=== PATIENT | female | born 1990 | race African-American/Black ===

== ENCOUNTER 2017-02-09 01:34 | Emergency (ER) | payer OTHER ==
[2017-02-09 01:46] VITALS: TEMP 98.1; BMI 24.0
[2017-02-09 03:09] LABS: PH,URINE 5.5 (5.0-8.0); URINE APPEARANCE CLEAR; URINE BILIRUBIN NEGATIVE (NEGATIVE); URINE BLOOD 3+ (NEGATIVE); URINE COLOR LT. BROWN; URINE GLUCOSE (UA) NEGATIVE (NEGATIVE); URINE KETONE NEGATIVE (NEGATIVE); URINE LEUK ESTERASE NEGATIVE (NEGATIVE); URINE NITRITE NEGATIVE (NEGATIVE); URINE PROTEIN TRACE (NEGATIVE); URINE UROBILINOGEN 0.2 mg/dL (0.2-1.0)
--- NOTE | 2017-02-09 03:17 | PDOC ---
History of Present Illness - General Chief Complaint: Urinary Problem Stated Complaint: 10 WEEKS - FREQ URINATION Time Seen by Provider: 02/09/17 03:17 Past History - Past Medical History Allergies/Adverse Reactions: Allergies Allergy/AdvReac Type Severity Reaction Status Date / Time No Known Allergies Allergy Verified 02/09/17 01:43 Home Medications: Ambulatory Orders NK [No Known Home Medication] 04/23/15 Other medical history: denies - Psycho/Social/Smoking Cessation Hx Anxiety: No Suicidal Ideation: No Smoking History: Never smoked Have you smoked in the past 12 months: No Hx Alcohol Use: No Drug/Substance Use Hx: No Substance Use Type: None *Physical Exam - Vital Signs Last Vital Signs Temp Pulse Resp BP Pulse Ox 98.1 F 79 18 123/61 99 02/09/17 01:41 02/09/17 01:41 02/09/17 01:41 02/09/17 01:41 02/09/17 01:41 ED Treatment Course - ADDITIONAL ORDERS Additional order review: Laboratory Results 02/09/17 03:02 Urine Color Lt. brown Urine Appearance Clear Urine pH 5.5 Urine Protein Trace H Urine Glucose (UA) Negative Urine Ketones Negative Urine Blood 3+ H Urine Nitrite Negative Urine Bilirubin Negative Urine Urobilinogen 0.2 Ur Leukocyte Esterase Negative Medical Decision Making - Medical Decision Making 02/09/17 07:08 Pt walked out before I could examine her and before her blood type returned. She is O+ however, and will not require rhogam. Pt refusing to go to sonogram this AM, as she has to go home and take care of her other kids. She has hematuria and vag bleed. *DC/Admit/Observation/Transfer Diagnosis at time of Disposition: Vaginal discharge - Referrals Referrals: STAFF,NOT ON [Primary Care Provider] -
[2017-02-09 03:18] LABS: URINE MUCUS RARE; URINE RBC 1260 /hpf (0-3); URINE WBC 114 /hpf (3-5)
[2017-02-09 06:22] VITALS: BP 118/69; PULSE 70
== END 2017-02-09 06:22 | disposition left against medical advice (07) ==
LOC: JER 01:34
DX: Z53.21 Procedure and treatment not carried out due to patient leaving prior to being seen by health care provider (principal)
CPT/HCPCS: 81003; 81015; 84703; 86850; 86900; 86901; 87086; 99282-25

== ENCOUNTER 2022-09-25 10:42 | Inpatient (IN) | payer OTHER ==
[2022-09-25 09:38] VITALS: BMI 30.7
[~2022-09-25 10:42] MED LIST: ACETAMINOPHEN 1000 MG/100 ML BAG IVPB ONE; ACETAMINOPHEN INJECTION 100 ML IVPB ONE; ELECTROLYTE-148 SOLN 1,000 ML IV SCH
[2022-09-25] MEDS ORDERED: ACETAMINOPHEN 1000 MG/100 ML BAG IVPB PRN (10:45)
[2022-09-25] MEDS ORDERED: CEFAZOLIN SODIUM 2 GM in DEXTROSE 5%-WATER 100 ML IVPB SCH (10:45)
[2022-09-25] MEDS: ELECTROLYTE-148 SOLN 1,000 ML IV SCH ×2 (11:00→23:46)
[2022-09-25] MEDS: CEFAZOLIN SODIUM 2 GM in DEXTROSE 5%-WATER 100 ML IVPB SCH ×2 (12:20→17:08)
[2022-09-25 12:23] LABS: EPI CELLS >36 /uL (0-25.1); HYALINE CASTS 0 /uL (0-3.1); PH,URINE 7.5 (5.0-8.0); URINE APPEARANCE CLEAR; URINE BACTERIA 2359 /uL (0-1359); URINE BILIRUBIN NEGATIVE (NEGATIVE); URINE COLOR YELLOW; URINE GLUCOSE (UA) NEGATIVE (NEGATIVE); URINE KETONE NEGATIVE (NEGATIVE); URINE LEUK ESTERASE 1+ (NEGATIVE); URINE NITRITE NEGATIVE (NEGATIVE); URINE PROTEIN NEGATIVE (NEGATIVE); URINE RBC 6 /uL (0-23.9); URINE UROBILINOGEN 0.2 mg/dL (0.2-1.0); URINE WBC 59 /uL (0-25.8)
[2022-09-25] MEDS ORDERED: DEXTROSE 5%-WATER 100 ML IVPB ONE (12:27)
[2022-09-25] MEDS ORDERED: CEFAZOLIN SODIUM 2 GM VIAL ONE (12:27)
[2022-09-25 14:07] VITALS: RESP 18
[2022-09-25 14:44] LABS: BASO % 0.6 % (0-2.0); EOS % 2.3 % (0-4.5); HEMATOCRIT 31.5 % (32.4-45.2); HEMOGLOBIN 11.1 GM/dL (10.7-15.3); LYMPH % 16.2 % (8-40); MCH 31.3 pg (25.7-33.7); MCHC 35.3 g/dl (32.0-36.0); MEAN CELL VOLUME 88.8 fl (80-96); MONO % 13.2 % (3.8-10.2); NEUT % 67.7 % (42.8-82.8); PLATELET COUNT 187 10^3/uL (134-434); RBC 3.54 M/mm3 (3.60-5.2); RDW 15.5 % (11.6-15.6); WHITE BLOOD COUNT 5.6 K/mm3 (4.0-10.0)
[2022-09-25 14:50] LABS: INR 1.04 (0.83-1.09); PROTHROMBIN TIME (PATIENT) 12.1 SEC (9.7-13.0)
[2022-09-25 14:53] LABS: ACTIVATED PTT 26.7 SECONDS (25.2-36.5)
[2022-09-25 15:39] LABS: CALCIUM 8.7 mg/dL (8.5-10.1)
[2022-09-25 15:40] LABS: BLOOD UREA NITROGEN 4.9 mg/dL (7-18)
[2022-09-25 15:43] LABS: CREATININE 0.5 mg/dL (0.55-1.3)
[2022-09-25 22:26] VITALS: PULSE 105
[2022-09-26] MEDS: CEFAZOLIN SODIUM 2 GM in DEXTROSE 5%-WATER 100 ML IVPB SCH ×2 (02:13→09:00)
[2022-09-26 10:00] VITALS: BP 99/64; TEMP 98
[2022-09-26] MEDS ORDERED: DIPHTH,PERTUSS(ACELL),TET 0.5 ML DISP.SYRIN IM ONE (10:00)
== END 2022-09-26 12:05 | disposition home or self-care (01) | DRG 832 ==
LOC: JASUSAT 10:42 → JLDR 10:42 → J3W 13:59 → JASUSAT 09-26 10:13
PROVIDERS: ADMIT Obstetrics & Gynecology; ATTEND Obstetrics & Gynecology
DX: O23.43 Unspecified infection of urinary tract in pregnancy, third trimester (principal); N39.0 Urinary tract infection, site not specified; Z3A.33 33 weeks gestation of pregnancy
CPT/HCPCS: 36415; 59025; 80048; 81003; 85025; 85610; 85730; 86850; 86900; 86901; 87086; 90715

== ENCOUNTER 2022-10-22 13:45 | Inpatient (IN) | payer OTHER ==
[2022-10-22] MEDS ORDERED: ACETAMINOPHEN 500 MG TABLET (FP) PO ONE (14:45)
[2022-10-22] MEDS ORDERED: ACETAMINOPHEN 500 MG TABLET (FP) ONE (14:46)
[2022-10-22 16:29] LABS: BASO % 0.5 % (0-2.0); HEMATOCRIT 32.6 % (32.4-45.2); HEMOGLOBIN 11.3 GM/dL (10.7-15.3); LYMPH % 18.1 % (8-40); MCH 30.6 pg (25.7-33.7); MCHC 34.6 g/dl (32.0-36.0); MEAN CELL VOLUME 88.5 fl (80-96); MONO % 15.5 % (3.8-10.2); NEUT % 61.9 % (42.8-82.8); PLATELET COUNT 181 10^3/uL (134-434); RBC 3.68 M/mm3 (3.60-5.2); RDW 15.4 % (11.6-15.6); WHITE BLOOD COUNT 5.8 K/mm3 (4.0-10.0)
[2022-10-22 16:35] LABS: INR 1.01 (0.83-1.09); PROTHROMBIN TIME (PATIENT) 11.7 SEC (9.7-13.0)
[2022-10-22 16:38] LABS: ACTIVATED PTT 25.6 SECONDS (25.2-36.5)
[2022-10-22 16:51] LABS: EPI CELLS >36 /uL (0-25.1); HYALINE CASTS 0 /uL (0-3.1); URINE APPEARANCE CLEAR; URINE BACTERIA 5005 /uL (0-1359); URINE BILIRUBIN NEGATIVE (NEGATIVE); URINE COLOR YELLOW; URINE GLUCOSE (UA) NEGATIVE (NEGATIVE); URINE KETONE NEGATIVE (NEGATIVE); URINE LEUK ESTERASE 3+ (NEGATIVE); URINE NITRITE NEGATIVE (NEGATIVE); URINE PROTEIN NEGATIVE (NEGATIVE); URINE RBC 10 /uL (0-23.9); URINE UROBILINOGEN 0.2 mg/dL (0.2-1.0); URINE WBC 47 /uL (0-25.8)
[2022-10-22 16:56] LABS: POTASSIUM 4.5 mmol/L (3.5-5.1)
[2022-10-22 16:58] LABS: CALCIUM 8.8 mg/dL (8.5-10.1)
[2022-10-22 16:59] LABS: BLOOD UREA NITROGEN 5.4 mg/dL (7-18)
[2022-10-22 17:02] LABS: CREATININE 0.4 mg/dL (0.55-1.3)
[2022-10-22] MEDS ORDERED: ceFAZolin SODIUM 1 GM VIAL ONE (17:08)
[2022-10-22] MEDS: ELECTROLYTE-148 SOLN 1,000 ML IV SCH (17:30)
[2022-10-22] MEDS ORDERED: CEFAZOLIN SODIUM 2 GM VIAL IVPB ONE (18:20)
[2022-10-22 19:10] VITALS: BMI 32.7
[2022-10-22 21:38] LABS: HIV INTERPRETATION NEGATIVE (NEGATIVE)
[2022-10-23] MEDS ORDERED: ceFAZolin SODIUM 1 GM VIAL ONE ×2 (01:58→09:59)
[2022-10-23] MEDS ORDERED: DEXTROSE 5%-WATER - 50 ML IVPB ONE (01:58)
[2022-10-23] MEDS: ELECTROLYTE-148 SOLN 1,000 ML IV SCH ×2 (02:00→20:39)
[2022-10-23] MEDS: CEFAZOLIN 1 GM in DEXTROSE 5%-WATER - 50 ML IVPB SCH ×3 (02:09→18:22)
[2022-10-23] MEDS ORDERED: ACETAMINOPHEN INJECTION 100 ML IVPB ONE ×2 (09:25→16:17)
[2022-10-23] MEDS ORDERED: ACETAMINOPHEN 1000 MG/100 ML BAG IVPB ONE (09:45)
[2022-10-23] MEDS ORDERED: LIGASURE IMPACT TP ONE (13:46)
[2022-10-23] MEDS ORDERED: morphine SULFATE (PF) 1 MG/2 ML SYRINGE ONE (14:30)
[2022-10-23] MEDS ORDERED: TRANEXAMIC ACID 1000 MG/10 ML VIAL ONE (15:11)
[2022-10-23] MEDS ORDERED: KETOROLAC TROMETHAMINE 30 MG/1 ML VIAL ONE (15:50)
[2022-10-23] MEDS ORDERED: CITRIC ACID/SODIUM CITRATE 30 ML UNIT-DOSE CUP PO ONE (16:01)
[2022-10-23 16:02] LABS: CORD HCO3 23.5 mmHg (20-29); CORD PCO2 46.6 mmHg (30-78); CORD pH 7.32 (7.14-7.44)
[2022-10-23] MEDS ORDERED: IBUPROFEN 800 MG/8 ML IJ IVPB PRN (16:02)
[2022-10-23] MEDS ORDERED: METHYLERGONOVINE MALEATE 0.2 MG/1 ML AMP IM PRN (16:02)
[2022-10-23] MEDS ORDERED: BENZOCAINE 20% 57 GM BOTTLE TP PRN (16:02)
[2022-10-23] MEDS ORDERED: BENZOCAINE 28 GM HEMORRHOIDAL OINTMENT TP PRN (16:02)
[2022-10-23] MEDS ORDERED: ACETAMINOPHEN 325 MG TABLET (FP) PO PRN (16:02)
[2022-10-23] MEDS ORDERED: WITCH HAZEL 50% (TUCKS) 40 PAD/JAR PAD TP PRN (16:02)
[2022-10-23] MEDS ORDERED: FENTANYL CITRATE/PF 50 MCG/ML VIAL ONE (16:03)
[2022-10-23] MEDS: OXYTOCIN 20 UNITS in 0.9% NS 20 UNIT/1,000 ML INFUS.BAG IV SCH (16:15)
[2022-10-23] MEDS ORDERED: OXYTOCIN 20 UNITS in 0.9% NS 20 UNIT/1,000 ML INFUS.BAG IV ONE (17:03)
[2022-10-23] MEDS ORDERED: NALOXONE HCL 0.4 MG/ML VIAL IVPUSH PRN (20:33)
[2022-10-23] MEDS ORDERED: ONDANSETRON 4 MG/2 ML VIAL IVPUSH PRN (20:33)
[2022-10-23] MEDS ORDERED: oxyCODONE HCL 5 MG TABLET PO PRN ×2 (20:33)
[2022-10-23] MEDS: ACETAMINOPHEN 325 MG TABLET (FP) PO SCH (20:46)
[2022-10-24] MEDS: OXYTOCIN 20 UNITS in 0.9% NS 20 UNIT/1,000 ML INFUS.BAG IV SCH ×2 (00:53→20:04)
[2022-10-24] MEDS: CEFAZOLIN 1 GM in DEXTROSE 5%-WATER - 50 ML IVPB SCH ×2 (01:42→10:00)
[2022-10-24] MEDS: SIMETHICONE 80 MG TAB.CHEW (FP) PO PRN ×3 (02:45→22:05)
[2022-10-24] MEDS: ACETAMINOPHEN 325 MG TABLET (FP) PO SCH ×4 (02:45→20:49)
[2022-10-24] MEDS ORDERED: oxyCODONE HCL 5 MG TABLET PO PRN ×2 (04:02)
[2022-10-24 07:17] LABS: BASO % 0.3 % (0-2.0); HEMATOCRIT 31.9 % (32.4-45.2); HEMOGLOBIN 11.2 GM/dL (10.7-15.3); LYMPH % 9.4 % (8-40); MCH 30.9 pg (25.7-33.7); MCHC 35.2 g/dl (32.0-36.0); MEAN CELL VOLUME 87.7 fl (80-96); MEAN PLT VOLUME 8.6 fl (7.5-11.1); MONO % 7.3 % (3.8-10.2); PLATELET COUNT 162 10^3/uL (134-434); RBC 3.64 M/mm3 (3.60-5.2); RDW 15.3 % (11.6-15.6); WHITE BLOOD COUNT 6.5 K/mm3 (4.0-10.0)
[2022-10-24] MEDS: PRENATAL VITAMINS W/ FOLIC ACID TABLET (FP) PO SCH (10:00)
[2022-10-24] MEDS: IBUPROFEN 600 MG TABLET (FP) PO PRN ×2 (10:58→23:43)
[2022-10-24] MEDS ORDERED: BISACODYL 10 MG SUPP.RECT RC PRN (16:02)
[2022-10-24] MEDS: oxyCODONE HCL 10 MG SUSTAINED ACTING TABLET PO SCH (22:05)
[2022-10-25] MEDS: SIMETHICONE 80 MG TAB.CHEW (FP) PO PRN ×3 (02:40→20:03)
[2022-10-25] MEDS: ACETAMINOPHEN 325 MG TABLET (FP) PO SCH ×4 (02:40→20:57)
[2022-10-25] MEDS: oxyCODONE HCL 10 MG SUSTAINED ACTING TABLET PO SCH ×2 (10:57→22:05)
[2022-10-25] MEDS: PRENATAL VITAMINS W/ FOLIC ACID TABLET (FP) PO SCH (10:57)
[2022-10-25] MEDS: IBUPROFEN 600 MG TABLET (FP) PO PRN ×2 (16:23→20:03)
[2022-10-26] MEDS: SIMETHICONE 80 MG TAB.CHEW (FP) PO PRN (02:36)
[2022-10-26] MEDS: ACETAMINOPHEN 325 MG TABLET (FP) PO SCH ×2 (02:36→09:22)
[2022-10-26] MEDS: IBUPROFEN 600 MG TABLET (FP) PO PRN (06:01)
[2022-10-26 06:39] LABS: BASO % 0.4 % (0-2.0); EOS % 4.9 % (0-4.5); HEMOGLOBIN 10.8 GM/dL (10.7-15.3); LYMPH % 14.6 % (8-40); MCH 30.7 pg (25.7-33.7); MCHC 34.8 g/dl (32.0-36.0); MEAN CELL VOLUME 88.3 fl (80-96); MEAN PLT VOLUME 7.6 fl (7.5-11.1); MONO % 12.2 % (3.8-10.2); NEUT % 67.9 % (42.8-82.8); PLATELET COUNT 216 10^3/uL (134-434); RBC 3.51 M/mm3 (3.60-5.2); RDW 15.5 % (11.6-15.6); WHITE BLOOD COUNT 8.6 K/mm3 (4.0-10.0)
[2022-10-26] MEDS: oxyCODONE HCL 10 MG SUSTAINED ACTING TABLET PO SCH (10:35)
[2022-10-26] MEDS: PRENATAL VITAMINS W/ FOLIC ACID TABLET (FP) PO SCH (10:37)
[2022-10-26 10:46] VITALS: BP 126/73; PULSE 98; RESP 16; TEMP 98.5
== END 2022-10-26 12:25 | disposition home or self-care (01) | DRG 785 ==
LOC: JDEL 13:45 → JLDR 18:30 → J3W 10-23 17:35
PROVIDERS: ADMIT Obstetrics & Gynecology; ATTEND Obstetrics & Gynecology
PROC: 10D00Z1 Extraction of Products of Conception, Low, Open Approach (ICD-10-PCS; principal; 2022-10-23)
PROC: 0UT70ZZ Resection of Bilateral Fallopian Tubes, Open Approach (ICD-10-PCS; 2022-10-23)
PROC: 0DNW0ZZ Release Peritoneum, Open Approach (ICD-10-PCS; 2022-10-23)
DX: O36.63X0 Maternal care for excessive fetal growth, third trimester, not applicable or unspecified (principal); O34.219 Maternal care for unspecified type scar from previous cesarean delivery; O99.214 Obesity complicating childbirth; K66.0 Peritoneal adhesions (postprocedural) (postinfection); Z3A.37 37 weeks gestation of pregnancy; Z37.0 Single live birth; Z30.2 Encounter for sterilization
CPT/HCPCS: 36415; 36600; 80048; 81003; 82803; 85025; 85610; 85730; 86780; 86850; 86900; 86901; 87086; 87389; 88302-TC; 88307-TC; C9803-CS; U0003; U0005

== ENCOUNTER 2024-05-04 04:48 | Day surgery (SDC) | payer OTHER ==
[2024-04-30 17:44] VITALS: BMI 21.9
[2024-05-04] MEDS ORDERED: ACETAMINOPHEN 325 MG TABLET (FP) PO PRN (06:42)
[2024-05-04] MEDS ORDERED: IBUPROFEN 400 MG TABLET (FP) PO PRN (06:42)
[2024-05-04] MEDS ORDERED: LIDOCAINE HCL/PF 2% SDV 5ML VIAL ONE (09:05)
[2024-05-04] MEDS ORDERED: PROPOFOL 20 ML ONE (09:05)
[2024-05-04] MEDS ORDERED: MIDAZOLAM HCL 2 MG/2 ML SINGLE DOSE VIAL ONE (09:05)
[2024-05-04] MEDS ORDERED: ONDANSETRON 4 MG/2 ML VIAL ONE (10:13)
[2024-05-04] MEDS ORDERED: DEXAMETHASONE SOD PHOSPHATE 4 MG/1 ML VIAL ONE (10:13)
[2024-05-04] MEDS ORDERED: KETOROLAC TROMETHAMINE 30 MG/1 ML VIAL ONE (10:13)
[2024-05-04] MEDS ORDERED: ONDANSETRON 4 MG/2 ML VIAL IVPUSH PRN (10:18)
[2024-05-04] MEDS ORDERED: LACTATED RINGERS SOLUTION 1,000 ML IV SCH (10:30)
[2024-05-04] MEDS ORDERED: ACETAMINOPHEN INJECTION 100 ML ONE (10:33)
[2024-05-04] MEDS: ACETAMINOPHEN 1000 MG/100 ML BAG IVPB ONE (10:37)
[2024-05-04 16:01] VITALS: BP 119/61; PULSE 78; RESP 18; TEMP 97.7
== END 2024-05-04 12:00 | disposition home or self-care (01) ==
LOC: JASU-SURG 04:48
PROVIDERS: ATTEND Obstetrics & Gynecology
PROC: 0UB98ZZ Excision of Uterus, Via Natural or Artificial Opening Endoscopic (ICD-10-PCS; principal; 2024-05-04 08:30)
DX: N84.1 Polyp of cervix uteri (principal); N84.0 Polyp of corpus uteri; D25.0 Submucous leiomyoma of uterus; N92.0 Excessive and frequent menstruation with regular cycle
CPT/HCPCS: 81025; 88305-TC; 94760; J0131